=== PATIENT | female | born 1945 | race Caucasian/White ===

== ENCOUNTER 2018-05-07 09:30 | Emergency (ER) | payer MEDICARE, OTHER ==
[~2018-05-07] VITALS: Ht 165.1 cm; Wt 72.6 kg
--- OUTSIDE RECORDS SUMMARY | ~2018-05-07 | XMS | Clinical Summary ---
Demographics + + + | Address | [address] | | | [place] [address] | + + + | Home Phone | | + + + | Preferred Language | Unknown | + + + | Marital Status | Single | + + + | Presybeterian Affiliation | Unknown | + + + | Race | Unknown | + + + | Ethnic Group | Other Race | + + + Author + + + | Author | [facility] | + + + | Organization | [facility] | + + + | Address | Unknown | + + + | Phone | Unavailable | + + + Support + + +---------+ + | Name | Relationship | Address | Phone | + + +---------+ + | NONE,NONE | ECON | Unknown | Unavailable | + + +---------+ + Care Team Providers + +------+ + | Care Special Forces Warrant Officer Name | Role | Phone | + +------+ + PP | Unavailable | + +------+ + Source Comments TERESSA is fully live on both [facility] and [facility] Allergies Not on File Current Medications Not on file Active Problems Not on file Social History + +-------+ +--------+------+ | Tobacco Use | Types | Packs/Day | Years | Date | | | | | Used | | + +-------+ +--------+------+ | Never Assessed | | | | | + +-------+ +--------+------+ + + + | Sex Assigned at | Date Recorded | | | | + + + | Not on file | | + + + Plan of Treatment + + + + + | Health Maintenance | Due Date | Last Done | Comments | + + + + + | Pneumococcal (Adult) | | | | | (1 of 2 - PCV13) | 9 | | | + + + + + | Influenza (Flu) | | | | | vaccination (#1) | 8 | | | + + + + + Results Not on filefrom Last 3 Months"
--- OUTSIDE RECORDS SUMMARY | ~2018-05-07 | XMS | Clinical Summary ---
Demographics + + + | Address | [address] | | | [place] [address] | + + + | Home Phone | | + + + | Preferred Language | Unknown | + + + | Marital Status | Single | + + + | Alevism Affiliation | Unknown | + + + | Race | Unknown | + + + | Ethnic Group | Other Race | + + + Author + + + | Author | [facility] | + + + | Organization | [facility] | + + + | Address | Unknown | + + + | Phone | Unavailable | + + + Support + + +---------+ + | Name | Relationship | Address | Phone | + + +---------+ + | NONE,NONE | ECON | Unknown | Unavailable | + + +---------+ + Care Team Providers + +------+ + | Care Auto Motor Mechanic Name | Role | Phone | + +------+ + PP | Unavailable | + +------+ + Source Comments TERESSA is fully live on both [facility] and [facility] InPatient.[facility] Allergies Not on File Current Medications [...]
[~2018-05-07 09:30] MED LIST: ATENOLOL50 MG PO; FOSAMAX70 MG PO; LIPITOR40 MG PO; NITROFURANTOIN100 MG PO; PRILOSEC20 MG PO; SYNTHROID75 MCG PO
[2018-05-07] MEDS ORDERED: ASPIRIN81 MG PO (10:13)
[2018-05-07] MEDS ORDERED: VITAMIN D2000 UNIT PO (10:14)
[2018-05-07] MEDS ORDERED: ZITHROMAX250 MG PO (10:15)
--- NOTE | 2018-05-07 19:56 | EKG ---
[facility] [address] [place] [address] Signed Normal sinus rhythm Moderate voltage criteria for LVH, may be normal variant Possible Lateral infarct , age undetermined Abnormal ECG No previous ECGs available Confirmed by ROSANGELA REES MD ([id number]) on 05/07/2018 7:56:27 PM Electronically Signed By: ROSANGELA REES MD 05/07/181955 PATIENT NAME: MIRIAN SOSA Electrocardiogram DATE OF : 41 PHYSICIAN: ROSANGELA REES MD REPORT #: [id number] REPORT IS CONFIDENTIAL AND NOT TO BE RELEASED WITHOUT AUTHORIZATION
== END 2018-05-07 10:56 | disposition home or self-care (01) ==
LOC: ED 09:30
DX: R07.9 Chest pain, unspecified (principal); Z79.82 Long term (current) use of aspirin; Z79.899 Other long term (current) drug therapy
CPT/HCPCS: 36415; 80053; 84484; 85025; 93005; 93010; 99285-25